=== PATIENT | male | born 1945 | race Caucasian/White ===

== ENCOUNTER 2017-05-31 06:04 | Day surgery (SDC) | payer MEDICARE, BC ==
[~2017-05-31] VITALS: Ht 167.6 cm; Wt 94.3 kg
[~2017-05-31 06:04] MED LIST: ALBU90OI INH; AMLO5 PO; ASPI81CH PO; ASPI81EC; ATEN50; Benicar40 MG PO; CARV25 PO; Cyclobenzaprine5 MG PO; Dyazide 37.5-21 EACH PO; FINA5 PO; FISH1000; Fish Oil 10001000 MG PO; GENT.3OPO TOP; GLIM2 PO; Hydrocodone-Ap1 EA23 PO; INS70/30PN; INSULANPEN SC; LEVITRA; LISHYD2012; LOVA20; METF500; METF500 PO; NATE60; Novolog100 UNIT/1 SC; OLME5TAB PO; OMEP20ER PO; Omeprazole20 M1 PO; PIOG45; Percocet 5-3251 EACH PO; Prednisone20 MG PO; RANI150; SIMV10 PO; Simvastatin10 MG PO; TADA10TA PO; TAMS.4ER PO; TRIHYD253B PO; Zithromax250 MG PO
== END 2017-05-31 22:52 | disposition home or self-care (01) ==
LOC: ORSCMMR 06:04 → ORD 07:30 → ORSCMMR 07:30
PROVIDERS: Surgery
PROC: 0WUF0JZ Supplement Abdominal Wall with Synthetic Substitute, Open Approach (ICD-10-PCS; principal; 2017-05-31 07:30)
DX: K42.9 Umbilical hernia without obstruction or gangrene (principal); I10 Essential (primary) hypertension; G47.33 Obstructive sleep apnea (adult) (pediatric); K21.9 Gastro-esophageal reflux disease without esophagitis; E11.9 Type 2 diabetes mellitus without complications; Z79.4 Long term (current) use of insulin; Z79.82 Long term (current) use of aspirin; Z79.899 Other long term (current) drug therapy
CPT/HCPCS: 82947; C1781; J0690; J1100; J2250; J2405; J3010; J7120

== ENCOUNTER 2023-01-22 13:14 | Emergency (ER) | payer MEDICARE, BC ==
[~2023-01-22] VITALS: Ht 162.6 cm; Wt 87.1 kg
[~2023-01-22 13:14] MED LIST changes: +NOVOLOG100 UNIT/3 SC; -Novolog100 UNIT/1 SC; +PROAIR DIGIHAL90 MCG
[2023-01-22 14:29] LABS: BASOPHILS ABSOLUTE AUTO 0.06 K/mm3 (0.00-0.23); BASOPHILS PERCENT AUTO 0 % (0-2); EOSINOPHILS PERCENT AUTO 1 % (0-6); Hemoglobin 11.6 g/dL (13.5-17.5); IMMATURE GRAN ABSOLUTE AUTO 0.49 K/mm3 (0.00-0.10); IMMATURE GRAN PERCENT AUTO 2 % (0-1); LYMPHOCYTES ABSOLUTE AUTO 1.93 K/mm3 (0.84-5.20); LYMPHOCYTES PERCENT AUTO 9 % (21-46); MONOCYTES ABSOLUTE AUTO 2.42 K/mm3 (0.16-1.47); MONOCYTES PERCENT AUTO 11 % (4-13); Mean Corpuscular HGB 27.6 pg (26.0-34.0); Mean Corpuscular HGB Conc 32.2 g/dL (31.5-36.5); Mean Corpuscular Volume 86 fL (80-100); Mean Platelet Volume 9.7 fL (9.1-12.4); NEUTROPHILS ABSOLUTE AUTO 16.28 K/mm3 (1.96-9.15); NEUTROPHILS PERCENT AUTO 76 % (41-73); Platelet Count 477 K/mm3 (150-400); RDW Standard Deviation 40.1 fL (35.1-46.3); Red Blood Cell Count 4.21 M/mm3 (4.30-5.90); White Blood Cell Count 21.28 K/mm3 (4.00-11.30)
[2023-01-22 14:55] LABS: Albumin, Blood 2.2 g/dL (3.4-5.0); Albumin/Globulin Ratio 0.4 (0.8-1.8); Bilirubin, Total 1.3 mg/dL (0.1-1.0); Bun/Creatinine Ratio 21.9 (12.0-20.0); Calcium, Blood 8.4 mg/dL (8.5-10.1); Creatinine, Blood 1.51 mg/dL (0.60-1.20); Globulin, Blood 5.5 g/dL (2.2-4.0); Potassium, Blood 4.7 mmol/L (3.5-5.5); Total Protein, Blood 7.7 g/dL (6.4-8.2)
[2023-01-22] MEDS ORDERED: LEVOFLOXACIN50011 PO (15:31)
[2023-01-22] MEDS ORDERED: Vitamin D1000 UNI1 PO (15:34)
[2023-01-22] MEDS ORDERED: VITAMIN B125000 MC1 (15:34)
[2023-01-22] MEDS ORDERED: SPIR25 PO (15:35)
[2023-01-22] MEDS ORDERED: HYDCHL25 (15:36)
[2023-01-22] MEDS ORDERED: METAMUCIL POWD798 GM (15:36)
[2023-01-22 17:27] LABS: Source, Urine Clean Catch
[2023-01-22 17:35] LABS: Appearance, Urine Clear (Clear); Bilirubin, Urine Neg (Neg); Blood, Urine Neg (Neg); Color, Urine Yellow (P-Yellow); Glucose Qualitative, Urine Neg (Neg); Ketones, Urine Neg (Neg); Leukocyte Esterase, Urine Neg (Neg); Nitrite, Urine Neg (Neg); Protein, Urine Neg (Neg); Specific Gravity, Urine 1.005 (1.003-1.022); Urobilinogen, Urine NORM (Normal)
[2023-01-22 18:18] VITALS: BP 124/68
== END 2023-01-22 18:51 | disposition home or self-care (01) ==
LOC: ER 13:14
PROVIDERS: Physician Assistant; Student in an Organized Health Care Education/Training Program
DX: K76.89 Other specified diseases of liver (principal); N17.9 Acute kidney failure, unspecified; D72.829 Elevated white blood cell count, unspecified; E11.9 Type 2 diabetes mellitus without complications; I10 Essential (primary) hypertension; Z79.4 Long term (current) use of insulin; Z79.84 Long term (current) use of oral hypoglycemic drugs; Z79.899 Other long term (current) drug therapy; Z79.82 Long term (current) use of aspirin; R53.83 Other fatigue
CPT/HCPCS: 36415; 51798; 74177; 76857; 76870; 80053; 81003; 82947; 84443; 85025; 96360; 99284-25; J7030; Q9967

== ENCOUNTER 2023-02-16 10:08 | Emergency (ER) | payer MEDICARE, BC ==
[~2023-02-16] VITALS: Ht 167.6 cm; Wt 86.2 kg
[~2023-02-16 10:08] MED LIST changes: +HYDCHL25; +LEVOFLOXACIN50011 PO; +METAMUCIL POWD798 GM; +SPIR25 PO; +VITAMIN B125000 MC1; +Vitamin D1000 UNI1 PO
[2023-02-16 11:03] LABS: BASOPHILS ABSOLUTE AUTO 0.04 K/mm3 (0.00-0.23); BASOPHILS PERCENT AUTO 0 % (0-2); EOSINOPHILS ABSOLUTE AUTO 0.17 K/mm3 (0.00-0.68); EOSINOPHILS PERCENT AUTO 1 % (0-6); Hematocrit 33.7 % (37.0-53.0); Hemoglobin 10.6 g/dL (13.5-17.5); IMMATURE GRAN PERCENT AUTO 1 % (0-1); LYMPHOCYTES ABSOLUTE AUTO 2.02 K/mm3 (0.84-5.20); LYMPHOCYTES PERCENT AUTO 13 % (21-46); MONOCYTES ABSOLUTE AUTO 1.54 K/mm3 (0.16-1.47); MONOCYTES PERCENT AUTO 10 % (4-13); Mean Corpuscular HGB 26.2 pg (26.0-34.0); Mean Corpuscular HGB Conc 31.5 g/dL (31.5-36.5); Mean Corpuscular Volume 83 fL (80-100); Mean Platelet Volume 9.6 fL (9.1-12.4); NEUTROPHILS ABSOLUTE AUTO 11.26 K/mm3 (1.96-9.15); NEUTROPHILS PERCENT AUTO 74 % (41-73); Platelet Count 403 K/mm3 (150-400); RDW Coefficient Variation 13.6 % (11.7-14.2); RDW Standard Deviation 41.4 fL (35.1-46.3); Red Blood Cell Count 4.05 M/mm3 (4.30-5.90); White Blood Cell Count 15.13 K/mm3 (4.00-11.30)
[2023-02-16 11:23] LABS: Albumin/Globulin Ratio 0.4 (0.8-1.8); Bilirubin, Total 0.8 mg/dL (0.1-1.0); Bun/Creatinine Ratio 15.7 (12.0-20.0); Calcium, Blood 8.2 mg/dL (8.5-10.1); Creatinine, Blood 0.89 mg/dL (0.60-1.20); Globulin, Blood 5.6 g/dL (2.2-4.0); Potassium, Blood 4.3 mmol/L (3.5-5.5); Total Protein, Blood 7.6 g/dL (6.4-8.2)
[2023-02-16 13:00] VITALS: BP 142/84
== END 2023-02-16 13:10 | disposition home or self-care (01) ==
LOC: ER 10:08
PROVIDERS: Physician Assistant
DX: R60.0 Localized edema (principal); I10 Essential (primary) hypertension; E11.9 Type 2 diabetes mellitus without complications; G47.30 Sleep apnea, unspecified; Z79.4 Long term (current) use of insulin; Z79.84 Long term (current) use of oral hypoglycemic drugs; Z79.82 Long term (current) use of aspirin; Z79.899 Other long term (current) drug therapy
CPT/HCPCS: 80053; 83880; 85025; 99284

== ENCOUNTER → 2023-03-03 | Outpatient (CLI) | payer MEDICARE, BC | END | disposition home or self-care (01) | LOC: LAB 14:00 → LAB SHORT 14:00 | DX: R35.0 Frequency of micturition (principal) | CPT/HCPCS: 87086 ==

== ENCOUNTER 2024-04-25 15:01 | Inpatient (IN) | payer MEDICARE, BC ==
[~2024-04-25] VITALS: Ht 167.6 cm; Wt 81.8 kg
[2024-04-25] MEDS ORDERED: FLU VACC TS2024-25(6MOS UP)/PF 45 MCG/0.5 ML SYRINGE IM PRN (17:10)
[2024-04-25] MEDS ORDERED: NS 1,000 ML IV SCH (17:10)
[2024-04-25 17:26] LABS: Source, Urine Voided
[2024-04-25 17:30] LABS: Appearance, Urine Clear (Clear); Bilirubin, Urine Neg (Neg); Blood, Urine 3+ (Neg); Glucose Qualitative, Urine 4+ (Neg); Ketones, Urine Neg (Neg); Leukocyte Esterase, Urine Neg (Neg); Nitrite, Urine Neg (Neg); Protein, Urine 2+ (Neg); Urobilinogen, Urine NORM (Normal)
[2024-04-25 17:39] LABS: Color, Urine Pale Yellow (P-Yellow)
[2024-04-25 17:41] LABS: Amorphous Light (0-Heavy); Bacteria Few /hpf; Red Blood Cells, Urine 0-2 /hpf (0-2); Squamous Epithelial Cells Rare /hpf (Few); White Blood Cells, Urine 0-2 /hpf (0-5)
[2024-04-25] MEDS ORDERED: Dextrose 50% 50 ML Vial IV PRN (18:25)
[2024-04-25 20:46] VITALS: BP 154/70
--- NOTE | 2024-04-25 22:46 | NUR ---
ADMIT NOTE FOR 04/25/242039 REPORT WAS RECEIVED FROM THE ER. PT WAS BROUGHT DOWN TO ROOM 308 VIA W/C. PTS CAME UP WITH HIM. PT WAS ORIENTED TO ROOM AND STAFF. PT ALERT ORIENTED X 4 ABLE TO VERBALIZE NEEDS. GETS UP AD KELSEY IN HIS ROOM. SKIN CHECK WAS DONE WITH NO SKIN CONCERNS. NO C/O PAIN. HE WAS STARTED ON TELEMETRY AND WAS NSR WITH 1ST DEGREE BLOCK AT 62. FS ARE BEING DONE Q1HR X 3 AND ARE 163 REMAINS ON NS AT 100. HES ON RA DURING THE DAY AND HIS CPAP AT NIGHT. HES RESTING IN BED AT THIS TIME WITH CALL LIGHT IN REACH
[2024-04-26 00:18] VITALS: BP 143/59
[2024-04-26 04:13] VITALS: BP 144/70
--- NOTE | 2024-04-26 04:31 | NUR ---
SHIFT SUMMARY PT WAS ADMITTED FROM THE ER AT 2039 WITH A DX OF KATT. HES ALERT ORIENTED X 4 ABLE TO VERBALIZE NEEDS AND CALLS APPROPRIATELY. AMBULATES AD KELSEY TO THE BATHROOM. FS WAS DONE Q1HR X 3 AND IS NOW AC AND HS HIS FS WERE 163, 163 AND 152. HE HAS A ORDER FOR A CONSULT WITH DR. MAI. I CALLED THE ANSWERING SERVICE AND INFORMED THEM OF THE CONSULT. VSS ON RA SATTING AT 95%. HE WEARS A CPAP AT NIGHT. REMAINS ON NS AT 100. REMAINS ON TELEMETRY AT NSR AT 62. NO C/O PAIN THIS SHIFT. HES RESTING IN BED AT THIS TIME WITH CALL LIGHT IN REACH
[2024-04-26 05:42] LABS: BASOPHILS ABSOLUTE AUTO 0.05 K/mm3 (0.00-0.23); BASOPHILS PERCENT AUTO 1 % (0-2); EOSINOPHILS ABSOLUTE AUTO 0.39 K/mm3 (0.00-0.68); EOSINOPHILS PERCENT AUTO 4 % (0-6); Hematocrit 31.5 % (37.0-53.0); Hemoglobin 10.5 g/dL (13.5-17.5); IMMATURE GRAN ABSOLUTE AUTO 0.03 K/mm3 (0.00-0.10); IMMATURE GRAN PERCENT AUTO 0 % (0-1); LYMPHOCYTES ABSOLUTE AUTO 1.86 K/mm3 (0.84-5.20); LYMPHOCYTES PERCENT AUTO 17 % (21-46); MONOCYTES ABSOLUTE AUTO 1.04 K/mm3 (0.16-1.47); MONOCYTES PERCENT AUTO 10 % (4-13); Mean Corpuscular HGB 26.8 pg (26.0-34.0); Mean Corpuscular HGB Conc 33.3 g/dL (31.5-36.5); Mean Corpuscular Volume 80 fL (80-100); Mean Platelet Volume 10.3 fL (9.1-12.4); NEUTROPHILS ABSOLUTE AUTO 7.35 K/mm3 (1.96-9.15); NEUTROPHILS PERCENT AUTO 69 % (41-73); Platelet Count 239 K/mm3 (150-400); RDW Coefficient Variation 13.9 % (11.7-14.2); RDW Standard Deviation 40.1 fL (35.1-46.3); Red Blood Cell Count 3.92 M/mm3 (4.30-5.90); White Blood Cell Count 10.72 K/mm3 (4.00-11.30)
[2024-04-26] MEDS ORDERED: Omeprazole 20 MG CapCR PO SCH (06:00)
[2024-04-26 06:11] LABS: Bun/Creatinine Ratio 13.1 (12.0-20.0); Calcium, Blood 8.2 mg/dL (8.5-10.1); Creatinine, Blood 5.96 mg/dL (0.60-1.20); Potassium, Blood 3.7 mmol/L (3.5-5.5)
[2024-04-26 07:04] VITALS: BP 158/63
[2024-04-26] MEDS ORDERED: Carvedilol 25 MG Tab PO SCH (08:00)
[2024-04-26] MEDS ORDERED: Heparin Sodium 5000 Units/ML 1ML MDV SC SCH (09:00)
[2024-04-26] MEDS ORDERED: Tamsulosin HCl 0.4 MG Cap PO SCH (09:00)
[2024-04-26] MEDS ORDERED: Atorvastatin 10 MG Tab PO SCH (09:00)
[2024-04-26] MEDS ORDERED: Finasteride 5 MG Tab PO SCH (09:00)
[2024-04-26 12:14] VITALS: BP 162/74
--- NOTE | 2024-04-26 12:34 | NUR ---
INSULATION HELPER NOTIFIED THIS RN THAT PT CBG IS 275. PT IS HAVING NO S/SX OF HYPERGLYCEMIA. DUE TO LOW CBG ON NOC SHIFT IN ER PT INSULIN AND METFORMIN HELD AND NOT ORDERED. THIS RN ATTEMPTED TO CALL [facility], NO ANSWER. LEFT VOICEMAIL WITH BRIEF MESSAGE INCLUDING NO PATIENT PERSONAL INFORMATION AND REQUESTED A CALL BACK.
[2024-04-26] MEDS ORDERED: Insulin Human Lispro 100 Units/ML 3ML Syringe SC SCH (12:45)
[2024-04-26 16:15] VITALS: BP 147/72
--- NOTE | 2024-04-26 17:48 | NUR ---
SHIFT SUMMARY A/Ox4, FULL CODE, INDEPENDENT IN ROOM. NOW ON STRICT I&O'S TO MONITOR URINE OUTPUT. CONTINUES ON NORMAL SALINE AT 100 ML/HR. PT DENIES ANY DISTRESS OR DISCOMFORT. RESTARTED ON SHORT AND LONG ACTING INSULIN DUE TO RESOLVED HYPOGLYCEMIA AND RISING BLOOD SUGARS. AWAITING VERONICA TO COMPLETE CONSULT, CONSULT INITIALLY CALLED INTO ANSWERING SERVICE BY ALEJANDRA RN. THIS RN FOLLOWED UP VIA PHONE AND VERONICA DID REPORT HE WOULD BE IN PRIOR TO END OF THE EVENING. PT CURRENTLY DANGLING AT BEDSIDE EATING DINNER, CALL LIGHT WITHIN REACH. USES CALL LIGHT APPROPRIATELY. SPOUSE AT BEDSIDE.
--- NOTE | 2024-04-26 19:01 | NUR ---
RECEIVED REPORT FROM DAY SHIFT RN. WILL CONTINUE TO PROVIDE CARE. CALL LT IN REACH.
[2024-04-26 19:08] VITALS: BP 165/76
[2024-04-26] MEDS ORDERED: NS 1,000 ML IV SCH (19:45)
[2024-04-26 20:57] LABS: Albumin, Blood 2.9 g/dL (3.4-5.0); Anion Gap 13 mmol/L (3-11); Blood Urea Nitrogen 72 mg/dL (8-24); Bun/Creatinine Ratio 12.7 (12.0-20.0); CO2, Blood 20 mmol/L (21-32); Calcium, Blood 7.9 mg/dL (8.5-10.1); Chloride, Blood 111 mmol/L (98-108); Creatinine, Blood 5.67 mg/dL (0.60-1.20); Glomerular Filtration Rate 10 (60-); Glucose, Blood 210 mg/dL (70-99); Phosphorus, Blood 2.9 mg/dL (2.5-4.9); Potassium, Blood 3.5 mmol/L (3.5-5.5); Sodium, Blood 140 mmol/L (136-145)
[2024-04-26] MEDS ORDERED: Insulin Glargine-Yfgn 100 Unit/mL 3 ML SYR SC SCH (21:00)
[2024-04-27 00:08] VITALS: BP 131/56
[2024-04-27 04:14] VITALS: BP 147/71
--- NOTE | 2024-04-27 05:00 | NUR ---
SHIFT SUMMARY: A/O X 4. STATES NEEDS APPROPRIATELY. USES CALL LT APPROPRIATELY. ON RA. DENIES PAIN AND SOB. INDEP IN RM AND BATHROOM. VOIDING WELL. DR CAMPA SEEN PT AT SHIFT CHANGE AND NEW ORDERS PLACED. NS AT 100 MLS/HR INFUSING WITHOUT DIFFICULTY. SINUS RHYTHM ON TELE AT 66 WITH A 1ST DEG BLOCK. TOLERATES CPAP AT HS. URINE SPECIMEN COLLECTED AND SENT TO LAB. NO ACUTE CHANGES. CBG 205, NO INSULIN REQUIRED, GLARGINE 15 UNITS GIVEN. NO ACUTE CHANGES. WILL CONTINUE TO PROVIDE CARE UNTIL SHIFT REPORT TO ONCOMING NURSE. CALL LT IN REACH.
--- NOTE | 2024-04-27 05:17 | NUR ---
ASSUMED CARE OF PT. PT RESTING. WILL CONTINUE TO PROVIDE CARE.
[2024-04-27 05:26] LABS: Eosinophils-Raw #,Urine 3
[2024-04-27 05:26] LABS: BASOPHILS ABSOLUTE AUTO 0.05 K/mm3 (0.00-0.23); BASOPHILS PERCENT AUTO 1 % (0-2); EOSINOPHILS ABSOLUTE AUTO 0.52 K/mm3 (0.00-0.68); EOSINOPHILS PERCENT AUTO 5 % (0-6); Hematocrit 33.2 % (37.0-53.0); Hemoglobin 10.9 g/dL (13.5-17.5); IMMATURE GRAN ABSOLUTE AUTO 0.03 K/mm3 (0.00-0.10); IMMATURE GRAN PERCENT AUTO 0 % (0-1); LYMPHOCYTES ABSOLUTE AUTO 1.53 K/mm3 (0.84-5.20); LYMPHOCYTES PERCENT AUTO 15 % (21-46); MONOCYTES ABSOLUTE AUTO 1.16 K/mm3 (0.16-1.47); MONOCYTES PERCENT AUTO 11 % (4-13); Mean Corpuscular HGB 26.5 pg (26.0-34.0); Mean Corpuscular HGB Conc 32.8 g/dL (31.5-36.5); Mean Corpuscular Volume 81 fL (80-100); Mean Platelet Volume 11.3 fL (9.1-12.4); NEUTROPHILS ABSOLUTE AUTO 7.14 K/mm3 (1.96-9.15); NEUTROPHILS PERCENT AUTO 68 % (41-73); Platelet Count 197 K/mm3 (150-400); RDW Coefficient Variation 13.9 % (11.7-14.2); RDW Standard Deviation 40.4 fL (35.1-46.3); Red Blood Cell Count 4.11 M/mm3 (4.30-5.90); White Blood Cell Count 10.43 K/mm3 (4.00-11.30)
[2024-04-27 05:43] LABS: White Blood Cells Urine 0-2 /hpf (0-5)
[2024-04-27 06:20] LABS: Albumin, Blood 2.8 g/dL (3.4-5.0); Anion Gap 14 mmol/L (3-11); Blood Urea Nitrogen 72 mg/dL (8-24); Bun/Creatinine Ratio 12.3 (12.0-20.0); CO2, Blood 17 mmol/L (21-32); Calcium, Blood 7.8 mg/dL (8.5-10.1); Chloride, Blood 115 mmol/L (98-108); Creatinine, Blood 5.84 mg/dL (0.60-1.20); Glomerular Filtration Rate 9 (60-); Glucose, Blood 160 mg/dL (70-99); Phosphorus, Blood 3.5 mg/dL (2.5-4.9); Potassium, Blood 3.5 mmol/L (3.5-5.5); Sodium, Blood 142 mmol/L (136-145); Uric Acid, Blood 3.2 mg/dL (3.5-7.2)
[2024-04-27 07:42] VITALS: BP 157/65
[2024-04-27 12:20] VITALS: BP 168/70
[2024-04-27 16:05] VITALS: BP 175/74
--- NOTE | 2024-04-27 18:37 | NUR ---
SHIFT SUMMARY NO ACUTE CHANGES, A/Ox4, REMAINS INDEPENDENT IN ROOM. DENIES PAIN OR DISCOMFORT/DISTRESS T/O SHIFT. MONITORING URINE OUTPUT. TREATED CBG WITH INSULIN COVERAGE PER ORDERS, CONSITENT CARB ADDED TO HEART HEALTHY DIET. VERONICA IN THIS EVENING TO REASSESS PT. NO NEW ORDERS AT THIS TIME. PT CONTINUES ON NS @ 100 ML/HR, ON BAG 2 OF 3. GREAT APPETITE. TELE MONITOR - SINUS CHING @ 58. PT CURRENTLY RESTING AT BEDSIDE EATING DINNER, SPOUSE AT BEDSIDE. CALL LIGHT IN REACH, USING APPROPRIATELY.
[2024-04-27 19:05] VITALS: BP 173/69
[2024-04-27] MEDS ORDERED: Sodium Bicarbonate 650 MG Tab PO SCH (21:00)
[2024-04-28 00:07] VITALS: BP 151/73
--- NOTE | 2024-04-28 03:29 | NUR ---
SHIFT SUMMARY NO ACUTE EVENTS DURING THIS SHIFT. HS B. POLYURIA @HS. PT REFUSED CPAP DURING THIS SHIFT. TELE SINUS CHING @53 WITH 1ST DEGREE HB. PT DENIES PAIN/DISCOMFORT/ SOB. NS DISCONTINUED PER PROVIDER. BED AT THE LOWEST POSITION, CALL LIGHT W/I REACH. PT IS ABLE TO MAKE HIS NEEDS KNOWN AND COOPERATIVE WITH CARE.
[2024-04-28 04:34] VITALS: BP 143/81
[2024-04-28 05:33] LABS: BASOPHILS ABSOLUTE AUTO 0.07 K/mm3 (0.00-0.23); BASOPHILS PERCENT AUTO 1 % (0-2); EOSINOPHILS ABSOLUTE AUTO 0.41 K/mm3 (0.00-0.68); EOSINOPHILS PERCENT AUTO 4 % (0-6); Hematocrit 33.1 % (37.0-53.0); IMMATURE GRAN ABSOLUTE AUTO 0.02 K/mm3 (0.00-0.10); IMMATURE GRAN PERCENT AUTO 0 % (0-1); LYMPHOCYTES ABSOLUTE AUTO 1.98 K/mm3 (0.84-5.20); LYMPHOCYTES PERCENT AUTO 21 % (21-46); MONOCYTES ABSOLUTE AUTO 0.96 K/mm3 (0.16-1.47); MONOCYTES PERCENT AUTO 10 % (4-13); Mean Corpuscular HGB 26.4 pg (26.0-34.0); Mean Corpuscular HGB Conc 33.2 g/dL (31.5-36.5); Mean Corpuscular Volume 79 fL (80-100); Mean Platelet Volume 10.4 fL (9.1-12.4); NEUTROPHILS ABSOLUTE AUTO 6.17 K/mm3 (1.96-9.15); NEUTROPHILS PERCENT AUTO 64 % (41-73); Platelet Count 237 K/mm3 (150-400); RDW Coefficient Variation 13.9 % (11.7-14.2); Red Blood Cell Count 4.17 M/mm3 (4.30-5.90); White Blood Cell Count 9.61 K/mm3 (4.00-11.30)
[2024-04-28 05:53] LABS: International Normalized Ratio 1.08; Prothrombin Time Results 11.5 Sec (9.7-11.5)
[2024-04-28 06:04] LABS: Anion Gap 13 mmol/L (3-11); Blood Urea Nitrogen 67 mg/dL (8-24); Bun/Creatinine Ratio 11.9 (12.0-20.0); CO2, Blood 20 mmol/L (21-32); Calcium, Blood 8.1 mg/dL (8.5-10.1); Chloride, Blood 113 mmol/L (98-108); Creatinine, Blood 5.63 mg/dL (0.60-1.20); Glomerular Filtration Rate 10 (60-); Glucose, Blood 150 mg/dL (70-99); Phosphorus, Blood 3.8 mg/dL (2.5-4.9); Potassium, Blood 3.5 mmol/L (3.5-5.5); Sodium, Blood 142 mmol/L (136-145)
[2024-04-28 07:29] VITALS: BP 162/78
[2024-04-28] MEDS ORDERED: AmLODIPine Besylate 5 MG Tab PO SCH (09:00)
[2024-04-28 16:26] VITALS: BP 158/72
--- NOTE | 2024-04-28 16:47 | NUR ---
SHIFT SUMMARY NO ACUTE CHANGES. A/Ox4, FULL CODE, INDEPENDENT IN ROOM. VSS, BLOOD PRESSURE IMPROVING WITH NEW MEDICATIONS. PT DENIES PAIN. PLAN FOR RENAL BIOPSY TOMORROW AND THEN POSSIBLE DISCHARGE. GOOD APPETITE, ENCOURAGING ADEQUATE FLUID INTAKE. TELE MONITOR IN PLACE - SINUS CHING @ 51. FAMILY AT BEDSIDE MAJOIRY OF DAY. PT RESTING IN HOSPITAL BED WITH BED IN LOWEST POSITION, CALL LIGHT WITHIN REACH. PT USES CALL LIGHT APPROPRIATELY.
[2024-04-28 19:20] VITALS: BP 137/65
[2024-04-28 23:06] VITALS: BP 123/62
[2024-04-29 03:34] VITALS: BP 119/62
--- NOTE | 2024-04-29 04:25 | NUR ---
SHIFT SUMMARY 78 YR M ADMITTED ON 04/25/24. FULL CODE. NO ACUTE CHANGES THIS SHIFT. PT HAS SLEPT FOR MOST OF THE NIGHT. HE IS A&O X 4 AND INDEPENDANT. HE HAS BEEN NPO SINCE 0300 IN ANTICIPATION OR RENAL BIOPSY THIS MORNING. NO NEW CHANGES TO REPORT. BED IN LOW PSOITION AND CALL LIGHT IN REACH.
[2024-04-29 06:17] LABS: BASOPHILS ABSOLUTE AUTO 0.06 K/mm3 (0.00-0.23); BASOPHILS PERCENT AUTO 1 % (0-2); EOSINOPHILS ABSOLUTE AUTO 0.43 K/mm3 (0.00-0.68); EOSINOPHILS PERCENT AUTO 5 % (0-6); Hematocrit 32.7 % (37.0-53.0); IMMATURE GRAN ABSOLUTE AUTO 0.04 K/mm3 (0.00-0.10); IMMATURE GRAN PERCENT AUTO 0 % (0-1); LYMPHOCYTES PERCENT AUTO 19 % (21-46); MONOCYTES ABSOLUTE AUTO 0.89 K/mm3 (0.16-1.47); MONOCYTES PERCENT AUTO 9 % (4-13); Mean Corpuscular HGB 26.5 pg (26.0-34.0); Mean Corpuscular HGB Conc 33.6 g/dL (31.5-36.5); Mean Corpuscular Volume 79 fL (80-100); Mean Platelet Volume 10.1 fL (9.1-12.4); NEUTROPHILS ABSOLUTE AUTO 6.39 K/mm3 (1.96-9.15); NEUTROPHILS PERCENT AUTO 67 % (41-73); Platelet Count 249 K/mm3 (150-400); RDW Coefficient Variation 14.1 % (11.7-14.2); RDW Standard Deviation 39.8 fL (35.1-46.3); Red Blood Cell Count 4.15 M/mm3 (4.30-5.90); White Blood Cell Count 9.61 K/mm3 (4.00-11.30)
[2024-04-29 06:37] LABS: Bun/Creatinine Ratio 12.2 (12.0-20.0); Calcium, Blood 8.3 mg/dL (8.5-10.1); Creatinine, Blood 5.8 mg/dL (0.60-1.20); Potassium, Blood 3.6 mmol/L (3.5-5.5)
[2024-04-29 07:44] VITALS: BP 132/68
[2024-04-29] MEDS ORDERED: AMLO5 PO (11:30)
[2024-04-29] MEDS ORDERED: SODBIC650 PO (11:31)
[2024-04-29 12:17] LABS: MYELOPEROXIDASE (MPO) AB,IGG 0 AU/mL (0-19); SERINE PROTEINASE 3 PR3 AB,IGG 0 AU/mL (0-19)
--- NOTE | 2024-04-29 15:27 | NUR ---
DISHCARGE 1215, INSTRUCTIONS GIVEN TO PATIENT AND , BOTH STATED UNDERSTANDING OF MEDICATIONS, FOLOW UP, AND INSTRUCTIONS. BOTH DENIED FURTHER QUESTIONS
[2024-04-30 01:07] LABS: ALBUMIN 3.27 g/dL (3.75-5.01); ALPHA 2 GLOBULIN 0.92 g/dL (0.48-1.05); BETA GLOBULIN 1.03 g/dL (0.48-1.10); GAMMA 1.48 g/dL (0.62-1.51); TOTAL PROTEIN,SERUM 7.1 g/dL (6.3-8.2)
== END 2024-04-29 13:04 | disposition home or self-care (01) | DRG 684 ==
LOC: ER 15:01 → ERHOLD 17:07 → MEDS 17:07 → ENPENDDIS 04-29 11:10 → MEDS 04-29 13:04
PROVIDERS: Emergency Medicine; Hospitalist; Internal Medicine; ADMIT Family Medicine
DX: N17.9 Acute kidney failure, unspecified (principal); I10 Essential (primary) hypertension; E11.649 Type 2 diabetes mellitus with hypoglycemia without coma; D63.8 Anemia in other chronic diseases classified elsewhere; G47.33 Obstructive sleep apnea (adult) (pediatric); Z79.2 Long term (current) use of antibiotics; Z79.4 Long term (current) use of insulin; Z79.84 Long term (current) use of oral hypoglycemic drugs; Z79.890 Hormone replacement therapy; Z79.899 Other long term (current) drug therapy; Z79.82 Long term (current) use of aspirin; Z90.89 Acquired absence of other organs; Z87.19 Personal history of other diseases of the digestive system; E11.319 Type 2 diabetes mellitus with unspecified diabetic retinopathy without macular edema; E11.69 Type 2 diabetes mellitus with other specified complication; E11.65 Type 2 diabetes mellitus with hyperglycemia; E11.22 Type 2 diabetes mellitus with diabetic chronic kidney disease; N18.31 Chronic kidney disease, stage 3a; E78.5 Hyperlipidemia, unspecified
CPT/HCPCS: 36415; 76770; 80048; 80053; 80061; 80069; 81001; 82043; 82570; 82947; 83036; 83516; 84155; 84156; 84165; 84300; 84550; 85025; 85610; 87205; 93005; 93010; 94660; 94762; 99285-25; A9270; J1644; J1815; J7030